=== PATIENT | male | born 1980 | race Caucasian/White ===

== ENCOUNTER 2016-11-09 07:51 | Day surgery (SDC) | payer BC ==
[2016-11-03 08:54] VITALS: BMI 38.0
[~2016-11-09 07:51] MED LIST: DEXAMETHASONE SOD PHOSPHATE 10 MG/ML 1 ML VIAL IV ONE; HEPARIN SODIUM,PORCINE 5,000 UNIT/ML 1 ML VIAL SQ ONE; HYDROmorphone 1 MG/ML 1 ML SYRINGE IVP PRN; ONDANSETRON 4 MG/2 ML VIAL IVP ONE; SCOPOLAMINE 1.5MG/72HR PATCH TRANSDERM ONE; ceFAZolin 3 GM in SODIUM CHLORIDE 0.9% 100 ML IVPB ONE
[2016-11-09] MEDS: LACTATED RINGERS 1,000 ML IV SCH ×2 (08:08→09:24)
[2016-11-09] MEDS: LIDOCAINE 1% 20 ML VIAL (10MG/ML) FOR IV START INTRADERMA PRN ×2 (08:08→08:09)
[2016-11-09] MEDS ORDERED: MIDAZOLAM 2 MG/2 ML VIAL IVP ONE (08:33)
--- NOTE | 2016-11-09 09:01 | P.GSHP ---
History of Present Illness H&P Date: 11/09/16 Chief Complaint: Incarcerated umbilical hernia This is a 35-year-old male referred from Dr. Saray Fenton. Patient rents today for laparoscopic robotic-assisted repair of incarcerated umbilical hernia. Past Medical History Additional Past Medical History / Comment(s): Current Umbilical Hernia History of Any Multi-Drug Resistant Organisms: None Reported Past Surgical History: Tonsillectomy Past Anesthesia/Blood Transfusion Reactions: No Reported Reaction Past Psychological History: No Psychological Hx Reported Smoking Status: Current every day smoker Past Alcohol Use History: Occasional Additional Past Alcohol Use History / Comment(s): Has been smoking 1PPD for 12 yrs. Past Drug Use History: None Reported - Past Family History Mother Family Medical History: No Reported History Medications and Allergies Home Medications Medication Instructions Recorded Confirmed Type No Known Home Medications [No 11/03/16 11/09/16 History Known Home Medications] Allergies Allergy/AdvReac Type Severity Reaction Status Date / Time No Known Allergies Allergy Verified 11/09/16 07:58 Surgical - Exam Vital Signs Temp Pulse Resp BP Pulse Ox 98.4 F 74 16 160/90 96 11/09/16 08:06 11/09/16 08:06 11/09/16 08:06 11/09/16 08:06 11/09/16 08:06 - General well developed, no distress - Eyes PERRL - ENT normal pinna - Neck no masses - Respiratory normal expansion - Cardiovascular Rhythm: regular - Abdomen Abdomen: soft, non tender Assessment and Plan Plan: Incarcerated umbilical hernia. We will perform laparoscopic robotic assistance repair.
[2016-11-09] MEDS ORDERED: LIDOCAINE 2%-EPI 1:100,000 20 ML VIAL SQ ONE (09:26)
[2016-11-09] MEDS ORDERED: BUPIVACAINE (PF) 0.25% 30 ML VIAL SQ ONE (09:26)
[2016-11-09] MEDS ORDERED: KETOROLAC 30 MG/ML 1 ML VIAL ONE (09:30)
[2016-11-09] MEDS ORDERED: LIDOCAINE 1% INJ 10MG/ML (20 ML MDV) ONE (09:30)
[2016-11-09] MEDS ORDERED: MIDAZOLAM 2 MG/2 ML VIAL ONE (09:30)
[2016-11-09] MEDS ORDERED: SUCCINYLCHOLINE CHLORIDE 100 MG/5 ML SYR IV ONE (09:30)
[2016-11-09] MEDS ORDERED: ROCURONIUM BROMIDE 10 MG/ML 10 ML VIAL IV ONE (09:30)
[2016-11-09] MEDS ORDERED: PROPOFOL 10 MG/ML 20 ML VIAL IV ONE (09:30)
[2016-11-09] MEDS ORDERED: fentaNYL (PF) 50 MCG/ML 2 ML AMP ONE (09:30)
[2016-11-09] MEDS ORDERED: HYDROmorphone (PF) 1 MG/ML ONE (09:30)
[2016-11-09] MEDS ORDERED: LACTATED RINGERS 1,000 ML IV ONE ×2 (10:19→15:22)
--- NOTE | 2016-11-09 10:49 | P.OP ---
Date of Procedure: 11/09/16 Preoperative Diagnosis: Incarcerated umbilical hernia Postoperative Diagnosis: Incarcerated umbilical hernia Procedure(s) Performed: Laparoscopic robotic-assisted repair of incarcerated we'll hernia Partial omentectomy Implants: Anesthesia: JENISE Surgeon: Adarsh Lopes Estimated Blood Loss (ml): 5 Pathology: other (Incarcerated omentum) Condition: stable Disposition: PACU Indications for Procedure: Operative Findings: Description of Procedure: The patient's placed on the operating table in the supine position. He received general anesthesia. His abdomen was prepped and draped usual sterile fashion. Using a 5 mm optical trocar under direct visualization the Cavity is entered in the left upper quadrant and then the abdomen was insufflated. After adequate insufflation a 8 mm robotic trocar was placed in the left lower quadrant. And then a 12 mm trochars placed in the left lateral position and the original 5 mm trocar was exchanged for an 8 mm robotic trocar. Patient position in the left side up position. He was then docked to the da Tee robot. Using hook cautery the incarcerated fat was reduced from the hernia. And then the fascial defect was closed with OV lock suture. Next a ventral light ST mesh was placed over top the repair and secured with 2 OV lock suture. The incarcerated fat was dissected free. The patient was undocked the robot. The incarcerated fat was withdrawn and sent to pathology. The needles were retrieved. The fascia of the 12 mm trocar site was closed with 0 Ethibond suture. Skin was closed interrupted 3-0 Monocryl suture. Dermabond was applied. Patient top procedure well and sent to recovery in stable condition.
[2016-11-09 11:07] VITALS: TEMP 98
[2016-11-09 12:16] VITALS: RESP 18
[2016-11-09] MEDS ORDERED: HYDROcodone/APAP 7.5-325MG 1 EACH TAB PO ONE (12:36)
[2016-11-09 13:57] VITALS: BP 115/77; PULSE 60
== END 2016-11-09 17:02 | disposition home or self-care (01) ==
LOC: OR 07:51
PROVIDERS: ATTEND Surgery
DX: K42.0 Umbilical hernia with obstruction, without gangrene (principal); F17.200 Nicotine dependence, unspecified, uncomplicated
CPT/HCPCS: 88302; 49653; C1781; J2250; J1644; J1100; J0690; J2405; J2001; J3010; J1885; J1170; J0330; J2704

== ENCOUNTER → 2018-12-28 | Outpatient (CLI) | payer BC ==
--- NOTE | 2018-12-28 12:40 | CT ---
EXAMINATION TYPE: CT abdomen pelvis w con DATE OF EXAM: 12/28/2018 COMPARISON: None INDICATION: Left lower quadrant, left flank lump DLP: 2751.8 mGycm, Automated exposure control for dose reduction was used. CONTRAST: 100 mL of Isovue 300. Study performed with Oral Contrast TECHNIQUE: Axial images were obtained from above the diaphragm to the iliac crests in the axial plane at 5 mm thick sections. Reconstructed images are reviewed on the computer in the coronal plane. FINDINGS: Limited CT sections are obtained the lung bases. There is a calcification within the lingula measuri ng 0.6 cm. Series 4 image 7 may be calcified granuloma. Lung bases are otherwise unremarkable.. CT ABDOMEN: No suspicious abnormalities evident within the left flank. Subcutaneous tissues are rolando l. No nodules are evident. The BB is identified series 3 image 35. No underlying abnormality is evide nt. The graft Liver: There are scattered hypodensities within the liver may be small hepatic cysts. Spleen: Normal Pancreas: Normal Adrenal glands: The adrenal glands are normal. Gallbladder: Normal Kidneys: No masses are evident. No hydronephrosis is present. No cysts are present. Delayed images were obtained through the kidneys, which remain unremarkable. Aorta: Normal Inferior vena cava: Normal. CT PELVIS: Loops of bowel within the abdomen and pelvis are normal. There are loops of bowel which are incom pletely distended or lack oral contrast limiting their evaluation. Appendix: Not visualized. No suspicious inflammatory changes are evident. Urinary bladder: Normal. Genitourinary structures: Osseous structures: No suspicious lytic or sclerotic lesions. IMPRESSIONS: 1. No abnormality to account for lump on left flank. 2. Normal CT abdomen and pelvis.
== END | disposition home or self-care (01) ==
LOC: RADCTMAIN 08:54
PROVIDERS: ATTEND Physician Assistant
DX: R19.04 Left lower quadrant abdominal swelling, mass and lump (principal)
CPT/HCPCS: 74177; Q9967 ×2

== ENCOUNTER → 2021-02-10 | Outpatient (CLI) | payer BC ==
--- NOTE | 2021-02-10 11:20 | EST ---
EXERCISE STRESS AGE: @@ SEX: @@ HT: @@ WT: @@ PROTOCOL: @@ STAGE: @@ DURATION OF EXERCISE: @@ HEART RATE REST: @@ BLOOD PRESSURE REST: @@ MAXIMUM HEART RATE ACHIEVED: @@ MAXIMUM BLOOD PRESSURE: @@ 85% MPHR: @@ 100% MPHR: @@ METS: @@ INDICATIONS: @@ CLINICAL INFORMATION: Baseline EKG revealed normal sinus rhythm without significant ST-T changes. Patient walked for 10 minutes 12 seconds, achieved a maximal heart rate of 155 beats per minute, which is 85% of predicted maximal. Rare isolated PVCs were noted. EKG did not reveal any ST-segment changes to indicate ischemia. By EKG criteria, this is a negative stress test with good exercise capacity. There was a lot of baseline artifact on the EKG, but there was no clear-cut evidence of ischemia. No angina. FINAL IMPRESSION: 1. Good exercise capacity with a negative stress test by EKG criteria. 2. Rare PVCs were noted. 3. No symptoms were reported. ISHAN / JENNIFFERN: [id number] /
== END | disposition home or self-care (01) ==
LOC: RADNMMAIN 08:41
PROVIDERS: ATTEND Family Medicine
DX: I49.3 Ventricular premature depolarization (principal)
CPT/HCPCS: 93017

== ENCOUNTER → 2023-10-24 | Outpatient (CLI) | payer BC ==
--- NOTE | 2023-11-16 11:25 | CONS ---
CONSULTATION REASON FOR CONSULTATION: 42-year-old gentleman has been evaluated in [facility] for possible obstructive sleep apnea-hypopnea syndrome. HISTORY OF PRESENT ILLNESS: Sleep-wake evaluation. The patient has been diagnosed with obstructive sleep apnea about 20 years ago by results of home sleep apnea test, but for different reason at that time he did not have treatment. At the present time, his sleep schedule from about 10 p.m. to 4 a.m. on weekdays and from about 11 p.m. to 7-9 a.m. on weekends. Usually no significant problems with falling asleep, no TV in bedroom. The patient sleeps in different position with loud snoring, episodes of choking and gasping for air and witnessed episodes of stopped breathing by his girlfriend. Positive history of heartburn and sweating during the night. The patient wakes up from sleep 3 times with 1 episode of nocturia. In the morning, the patient wakes up tired, falling asleep during the day, has episodes of irritability, difficulties to concentrate, episodes of anxiety. [place] Sleepiness Scale significantly increased to 13. Usually, the patient does not take naps. No history of hypnagogic hallucinations, sleep paralysis, or cataplexy. PAST MEDICAL HISTORY: Positive for: 1. Hypertension. 2. Bronchitis, acid reflux. PAST SURGICAL HISTORY: Hemorrhoidectomy, abdominal hernia in 2017. MEDICATIONS: 1. Metoprolol 50 mg twice a day. 2. Lisinopril 10 mg once a day. 3. Phentermine 37.5 mg once a day. SOCIAL HISTORY: Positive for smoking half pack a day for about 20 years. Alcohol consumption, occasional. REVIEW OF SYSTEMS: Snoring, multiple awakenings from sleep, sleepiness during the day. No fevers. No double vision. No recent chest pain. No shortness of breath. No abdominal pain. No bleeding episodes. No blood in the urine. No seizure episodes. FAMILY HISTORY: Hypertension, heart problems, hyperlipidemia, stroke, arthritis, sleep apnea, cancer, diabetes, and thyroid problems. PHYSICAL EXAMINATION: GENERAL: gentleman without distress. VITAL SIGNS: BP 148/108, HR 98, RR 16, height 5 feet 11.5 inches, weight 315 pounds, BMI 43.3, temperature 98.7, oxygen saturation at room air 97%. HEENT: PERRLA, EOMI. Oropharynx, low position of soft palate, Mallampati 3-4. NECK: Wide, 19 inches in circumference, supple, no JVD. Thyroid is not palpable. LUNGS: Clear to percussion and to auscultation. Good air exchange. No wheezing or rhonchi. HEART: S1, S2 regular. No murmurs, gallops, or rubs. ABDOMEN: Slightly obese. Soft and nontender. Bowel sounds are present. No organomegaly appreciated. EXTREMITIES: No clubbing or cyanosis. NEWS COMMENTATOR: Awake, alert, and oriented X3. Cranial nerves 2 to 7 intact. There is no fasciculation or atrophy. noted. No focal deficits observed. IMPRESSION: 1. Snoring, witnessed episodes of stopped breathing during sleep, multiple awakenings from sleep with choking and gasping for air, low position of soft palate, Mallampati 3-4, wide neck, 19 inches in circumference, sleepiness with [place] Sleepiness Scale 13, obstructive sleep apnea-hypopnea syndrome. 2. Obesity, BMI 43.3. 3. Significant amount of movements during the sleep, possibly periodic limb movements. 4. Hypertension. 5. History of bronchitis. 6. Acid reflux. 7. Status post hemorrhoidectomy. 8. Status post abdominal hernia repair. 9. Smoker for about 20 years, presently half pack a day. PLAN: 1. Polysomnography for evaluation of the patient breathing during the sleep. 2. Following plan after reading sleep study. 3. Losing weight. 4. Sleep hygiene, regular time in bed for at least. 5. 8 hours. 6. No driving if feeling sleepiness. Thank you very much for referring this patient for consultation. Mustapha Slater MD, PhD, FAASM Diplomat of [employer] Sleep Medicine Board of [place] [employer] Resource Agent of [facility] [place] MMODL / IJN: [id number] /
== END ==
LOC: 3 N SLEEP 14:40
PROVIDERS: ATTEND Internal Medicine
CPT/HCPCS: 99211